=== PATIENT | female | born 1965 | race Caucasian/White ===

== ENCOUNTER 2019-03-24 12:08 | Day surgery (SDC) | payer BC ==
[2019-03-24] MEDS ORDERED: LIDOCAINE 2% MDV (20MG/ML) 20ML VIAL IV ONE (12:09)
[2019-03-24] MEDS ORDERED: PROPOFOL 10 MG/ML VIAL IV ONE (12:09)
[2019-03-24 15:58] LABS: ABSOLUTE NEUTROPHIL COUNT 1.94; BASO % 0.7 % (0-6); EOS % 0.7 % (0-6); GRAN % 44.7 % (47-80); HEMATOCRIT 41.8 % (35.0-47.0); HEMOGLOBIN 13.3 gm/dl (11.6-16.0); MEAN CELL VOLUME 92.9 fl (81-97); MEAN CORPUSCULAR HEMOGLOBIN 29.6 pg (27-33); MEAN CORPUSCULAR HGB CONC 31.8 g/dl (32-36); MEAN PLATELET VOLUME 11.2 fl (7.4-10.4); MONO % 10.9 % (0-9); PLATELET COUNT 239 K/uL (130-400); RED CELL DISTRIBUTION WIDTH 13.4 % (11.5-14.5); WHITE BLOOD COUNT W/O DIFF 4.3 K/uL (4.2-12.2)
--- NOTE | 2019-04-29 07:20 | Operative Note ---
DATE: 03/24/2019 OPERATION: COLONOSCOPY to the cecum. INDICATION: Prior history of adenomatous polyps. The patient returns after 5 years for surveillance. ANESTHESIA: Intravenous sedation was administered by the department of anesthesiology and included Diprivan titrated to effect. PROCEDURE: Following informed consent from this alert individual including a discussion of the risks and benefits of the procedure and an opportunity for the patient to ask questions, the patient was in the left lateral decubitus position. A digital rectal examination was performed. No abnormalities were noted. Following this, the Olympus [id number] video colonoscope was inserted into the rectum without resistance. The rectal mucosa had a normal appearance with normal folds and distensibility. The colonoscope was advanced up through the colon to the level of the cecum without much difficulty. Throughout the bowel the mucosa appeared normal, the folds were normal, and the bowel was fairly well distensible. The colon preparation was good. The cecum was evaluated by noting the appendiceal orifice and ileocecal valve. Emanating from the appendiceal orifice was some purulent exudate, which was washed and then again some purulent exudate was noted. There was no swelling or edema noted at the appendix. There were no other changes noted throughout the colon. Overall, the preparation was good. From this point, the colonoscope was then withdrawn. No additional changes were appreciated throughout the remainder of the bowel upon withdrawal. Retroflexion in the rectum was endoscopically normal. The endoscope was straightened and removed. The patient tolerated the procedure well and was returned to the recovery area in stable condition. IMPRESSION: Purulent exudate emanating from the appendiceal orifice without any other abnormalities noted. RECOMMENDATIONS: Following the procedure, I had a long discussion with the patient and her spouse about any signs or symptoms of appendicitis or pain in the right lower quadrant or any other changes in her bowel pattern, fevers, chills, or sweats. All were denied. She is completely asymptomatic. I did recommend that she have a CT scan of the abdomen and pelvis to further evaluate the purulent exudate coming from the appendix. It might be of benefit to discuss this with a surgeon as well pending CT results. As always, thank you for allowing me to participate in the care of your patient. KRYSTLE
== END 2019-03-24 14:40 | disposition home or self-care (01) ==
LOC: HOP 12:08
PROVIDERS: ATTEND Internal Medicine Gastroenterology
DX: Z12.11 Encounter for screening for malignant neoplasm of colon (principal); Z86.010 Personal history of colon polyps; K38.8 Other specified diseases of appendix
CPT/HCPCS: 00812; 85025; G0105